=== PATIENT | female | born 1985 | race Caucasian/White ===

== ENCOUNTER 2023-05-22 13:57 | Emergency (ER) | payer BC, SELFPAY ==
[2023-05-22 14:01] VITALS: BP 109/76
[2023-05-22] MEDS: REGLAN 10 MG IV (14:55)
[2023-05-22] MEDS: NSS 1000 IV (14:56)
[2023-05-22 15:10] LABS: HCG, Serum Qualitative Screen Negative
[2023-05-22 15:13] LABS: % Basophils 0.7 % (0-2); % Eosinophils 0.7 % (0-6); % Monocytes 10.2 % (1.7-9.3); % Neutrophils 57.4 % (42.2-75.2); Absolute Lymphocytes 1.7 10^3/uL (1.2-3.4); Absolute Monocytes 0.6 10^3/uL (0.1-0.6); Absolute Neutrophils 3.2 10^3/uL (1.4-6.5); Hematocrit 34.7 % (37.0-47.0); Hemoglobin 11.5 g/dL (12.0-16.0); Mean Corp Hgb Conc. 33.1 g/dL (33.0-37.0); Mean Corpuscular Hgb 29.8 pg (27.0-31.0); Mean Corpuscular Volume 89.9 fL (81.0-99.0); Mean Platelet Volume 10.3 fL (7.4-10.4); Nucleated Red Blood Cells % 0 %; Platelet Count 275 10^3/uL (130-400); Red Blood Cell Count 3.86 10^6/uL (4.20-5.40); Red Cell Dist. Width 12.3 % (11.5-14.5); White Blood Cell Count 5.6 10^3/uL (4.8-10.8)
[2023-05-22 15:14] LABS: Urine Albumin Negative (Neg - Trace); Urine Bilirubin Negative (Negative); Urine Character Clear (Clear); Urine Color Yellow; Urine Glucose Negative (Negative); Urine Ketone Negative (Negative); Urine Leukocyte Negative (Negative); Urine Nitrite Negative (Negative); Urine Occult Blood Negative (Negative); Urine Specific Gravity 1.005 (<1.030); Urine Urobilinogen Negative (Neg - 1+)
[2023-05-22 15:17] LABS: ALT (SGPT) 25 U/L (0-35); AST (SGOT) 35 U/L (14-36); Albumin 4.7 g/dl (3.5-5.0); Alkaline Phosphatase 51 U/L (38-126); Blood Urea Nitrogen 16 mg/dl (7-17); Calcium 9.5 mg/dl (8.4-10.2); Carbon Dioxide 25 mmol/L (22-30); Chloride 105 mmol/L (98-107); Glucose 78 mg/dl (70-99); Lipase 88 U/L (23-300); Potassium 4.4 mmol/L (3.5-5.1); Sodium 134 mmol/L (135-145); Total Bilirubin 0.3 mg/dl (0.2-1.3); Total Protein 7.3 g/dl (6.3-8.2); eGFR > 60.00
[2023-05-22] MEDS: OMNIPAQUE 50 ML PO (15:23)
[2023-05-22] MEDS: TORADOL 15 MG IV (16:30)
[2023-05-22] MEDS: ZOFRAN 4 MG IV (16:30)
--- NOTE | 2023-05-22 18:54 | ED.GENMED ---
History of Present Illness
General
Chief Complaint: Weakness
Source: patient
Exam Limitations: none
Time Seen by Provider: 05/22/23 14:18
Travel History
Have you had any contact with someone who has COVID-19?: No
Do you have any symptoms of coronavirus? Fever > 100 degrees, chills, cough, shortness of breath, sore throat, loss of taste or smell, muscle aches, or headache?: No
History of Present Illness
History of Present Illness:
37-year-old female presents with abdominal bloating nausea headache ongoing for several days. The headache is not sudden in onset. No associated fever. No chest pain. She notes she has a history of IBS and gastroparesis. She is followed by GI.
She spoke with the GI office today and they referred her here for further evaluation. She takes IBS Rella. She takes pantoprazole. Denies regular alcohol use. Does not smoke marijuana. Denies regular use of NSAIDs. No other complaints at this
time
Past History
Past History
ED Past Medical History: GERD, Other (Gastroporesis, anxiety, TMJ) and Other
ED Past Surgical History: None
Social History
Personal: Single
Living: with family
Phy Exam
Physical Exam
Physical Exam:
General: Well-appearing female no acute respiratory distress
HEENT: Normocephalic atraumatic
Heart: Regular rate and rhythm no murmurs
Lungs: Clear no wheeze or Rales
Abdomen: Soft mildly diffusely tender mild distention. Normal bowel sounds no guarding or rebound
Extremities: No cyanosis or edema
Course
Orders/Labs/Results
Orders:
Orders
05/22/23 14:36
0.9% Sodium Chloride 1000 ml [Nss] 1,000 ml IV BOLUS
Metoclopramide [Reglan] 10 mg IV NOW STA
05/22/23 14:38
Test Result ONCE
05/22/23 14:46
Complete Blood Count/With Diff Urgent
Comprehensive Metabolic Panel Urgent
HCG, Serum Qualitative Screen Urgent
Lipase Urgent
05/22/23 14:48
Urinalysis Reflex To Culture Urgent
Date Specimen was Collected: 05/22/23
Time Specimen was Collected: 14:47
05/22/23 15:08
CT Abd/pel W Iv And Oral Contr Urgent
Comment:
Reason For Exam: abdominal pain, nausea
Iohexol [Omnipaque] See Protocol PO NOW STA
05/22/23 16:24
Ketorolac [Toradol] 15 mg IV NOW STA
Ondansetron Injectable [Zofran] 4 mg IV NOW STA
Abnormal Lab Results
05/22/23
14:46
RBC 3.86 L 10^6/uL
(4.20-5.40)
Hgb 11.5 L g/dL
(12.0-16.0)
Hct 34.7 L %
(37.0-47.0)
Monocytes % 10.2 H %
(1.7-9.3)
Sodium 134 L mmol/L
(135-145)
05/22/23 14:46
05/22/23 14:46
Vital Signs
Initial and Last Documented VS:
Initial Vital Signs
Temp Pulse Resp BP Pulse Ox
98.6 F 70 18 109/76 100
05/22/23 14:01 05/22/23 14:01 05/22/23 14:01 05/22/23 14:01 05/22/23 14:01
Last Documented Vital Signs
Temp Pulse Resp BP Pulse Ox
97.9 F 70 18 109/76 100
05/22/23 16:03 05/22/23 14:01 05/22/23 14:01 05/22/23 14:01 05/22/23 14:01
MDM/Problems Addressed
Differential Diagnosis Includes:
Nausea with abdominal discomfort and headache. Symptoms seem to be ongoing but worse over the past several days. She has seen GI for this. Will start workup with labs. Spoke with GI who recommended CT for her. We gave her Zofran as well.
Zofran was given after Reglan did not help. Zofran seem to help the nausea more. CT with oral and IV, was performed and is negative for acute finding. She is on pantoprazole. Question possible reflux gastritis versus ulcer. Will follow-up with
GI.
*Critical Care Note
Total Time (30-74mins, 75-104mins- exclusive of procedures): Not Applicable
ED Attending Note
-
Portions of this chart may have been created with voice recognition software.� Occasional wrong word or��sound alike� substitutions may have occurred due to the inherent limitations of voice recognition software.
Discharge Plan
Departure
Patient Disposition: Home (Routine Discharge)
Date of Disposition: 05/22/23
Time of Disposition: 19:03
Patient with high blood pressure during this ER visit?: No
Discharge Problem:
Abdominal pain
Prescriptions:
New
ondansetron 4 mg tablet,disintegrating
4 mg PO Q8H PRN (Reason: nausea and vomiting) Qty: 10 0RF
Referrals:
Marcos Torres MD [Family Provider] -
Activity Restrictions/Additional Instructions:
Use Zofran if needed for nausea. Continue current medication. Follow-up with your GI team for further evaluation
Interventions
Interventions:
*General Assessment Last Done: 05/22/23 14:01
*ED COVID-19 Vaccine History Last Done: 05/22/23 14:01
ED- Cardiac Assessment Last Done: 05/22/23 18:58
ED- Neurological Assessment Last Done: 05/22/23 16:01
ED- Pulmonary Assessment Last Done: 05/22/23 16:01
[2023-05-22 18:57] VITALS: BP 105/74
== END 2023-05-22 19:06 | disposition home or self-care (01) ==
LOC: EMR 13:57
PROVIDERS: Physician Assistant; EMERGENCY PHYSICIAN Emergency Medicine; FAMILY PHYSICIAN Internal Medicine
DX: R10.9 Unspecified abdominal pain (principal); K58.9 Irritable bowel syndrome, unspecified; K31.84 Gastroparesis; K21.9 Gastro-esophageal reflux disease without esophagitis
CPT/HCPCS: 99284; 96374; 96375; 96361; 74177; 80053; 81003; 83690; 84703; 85025; Q9967

== ENCOUNTER → 2024-07-08 10:29 | Outpatient (REF) | payer BC, SELFPAY | LOC: HWRAD 10:29 | PROVIDERS: FAMILY PHYSICIAN Physician Assistant | DX: R10.2 Pelvic and perineal pain (principal) | CPT/HCPCS: 76830; 76856 ==

== ENCOUNTER → 2024-11-01 10:40 | Outpatient (REF) | payer BC, SELFPAY | LOC: HWRAD 10:40 | PROVIDERS: ATTENDING PHYSICIAN Physician Assistant Medical; FAMILY PHYSICIAN Physician Assistant | DX: R10.32 Left lower quadrant pain (principal) | CPT/HCPCS: 76830; 76856 ==

== ENCOUNTER → 2024-11-10 14:15 | Outpatient (REF) | payer BC, SELFPAY | LOC: RAD 14:15 | PROVIDERS: ATTENDING PHYSICIAN Physician Assistant | DX: R10.32 Left lower quadrant pain (principal) | CPT/HCPCS: 74177; Q9967 ==